=== PATIENT | male | born 1970 | race Caucasian/White ===

== ENCOUNTER 2020-05-14 11:35 | Emergency (ER) | payer OTHER ==
[~2020-05-14] VITALS: Ht 177.8 cm; Wt 100.0 kg
[2020-05-14 12:13] VITALS: BP 135/69
== END 2020-05-14 12:49 | disposition home or self-care (01) ==
LOC: ER 11:36
DX: F10.10 Alcohol abuse, uncomplicated (principal); Y90.9 Presence of alcohol in blood, level not specified
CPT/HCPCS: 99281